=== PATIENT | female | born 1980 | race Caucasian/White ===

== ENCOUNTER → 2017-10-10 | Outpatient (REF) | payer BC ==
[2017-10-10 19:50] LABS: BASO % 0.2 % (0.0-1.0); EOS # 0.1 10^3/uL (0.0-0.50); EOS % 1.6 % (0.0-3.0); HEMATOCRIT 38.8 % (36.0-47.0); HEMOGLOBIN 12.9 g/dl (12.0-16.0); IMMATURE GRANULOCYTE % 0.2 % (0-3.0); LYMPH # 0.9 10^3/uL (1.5-4.5); LYMPH % 20.8 % (24.0-44.0); MEAN CORPUSCULAR HEMOGLOBIN 30.5 pg (27.0-33.0); MEAN CORPUSCULAR HGB CONC 33.2 g/dl (32.0-36.5); MEAN CORPUSCULAR VOLUME 91.7 fl (80.0-96.0); MONO # 0.3 10^3/uL (0.0-0.8); MONO % 6.8 % (0.0-5.0); NEUTROPHILS % 70.4 % (36.0-66.0); PLATELET COUNT, AUTOMATED 163 10^3/uL (150-450); RED BLOOD COUNT 4.23 10^6/uL (4.00-5.40); WHITE BLOOD COUNT 4.3 10^3/uL (4.0-10.0)
[2017-10-10 20:14] LABS: ERYTHROCYTE SEDIMENTATION RATE 5 mm/hr (0-20)
[2017-10-10 20:20] LABS: ALBUMIN 4.3 GM/DL (3.2-5.2); ALKALINE PHOSPHATASE 57 U/L (45-117); ALT/SGPT 20 U/L (12-78); ANION GAP 9 MEQ/L (8-16); AST/SGOT 16 U/L (7-37); BILIRUBIN,TOTAL 0.6 MG/DL (0.2-1.0); BLOOD UREA NITROGEN 17 MG/DL (7-18); CALCIUM LEVEL 8.7 MG/DL (8.5-10.1); CARBON DIOXIDE LEVEL 25 MEQ/L (21-32); CHLORIDE LEVEL 105 MEQ/L (98-107); CREATININE FOR GFR 0.68 MG/DL (0.55-1.30); GLOMERULAR FILTRATION RATE > 60.0 (>60); GLUCOSE, FASTING 110 MG/DL (70-100); POTASSIUM SERUM 3.9 MEQ/L (3.5-5.1); RHEUMATOID FACTOR QUANT < 10.0 IU/ML (0-15.0); SODIUM LEVEL 139 MEQ/L (136-145); TOTAL PROTEIN 7.6 GM/DL (6.4-8.2)
[2017-10-10 20:24] LABS: TOTAL 25(OH) VITAMIN D 28.7 NG/ML (30.0-100.0); VITAMIN B12 LEVEL 438 PG/ML
[2017-10-10 20:25] LABS: FOLATE 12.6 NG/ML
== END ==
LOC: M LABNEURO 12:47
DX: G31.84 Mild cognitive impairment of uncertain or unknown etiology (principal); E55.9 Vitamin D deficiency, unspecified; Z13.29 Encounter for screening for other suspected endocrine disorder
CPT/HCPCS: 82746

== ENCOUNTER → 2021-09-14 | Outpatient (REF) | payer OTHER ==
[2021-09-14 18:13] LABS: C REACTIVE PROTEIN QUANTITATIV < 0.30 MG/DL (0.00-0.30); COMPLEMENT C3 78 MG/DL (90-180); COMPLEMENT C4 20 MG/DL (10-40)
== END ==
LOC: M LAB REF 16:28
PROVIDERS: ATTEND Internal Medicine
DX: M32.9 Systemic lupus erythematosus, unspecified (principal); Z79.899 Other long term (current) drug therapy

== ENCOUNTER → 2022-04-05 | Outpatient (REF) | payer OTHER | LOC: M LAB REF 16:18 | PROVIDERS: ATTEND Internal Medicine | DX: M32.9 Systemic lupus erythematosus, unspecified (principal) ==

== ENCOUNTER → 2022-06-09 | Outpatient (REF) | payer OTHER | LOC: M PLALAB 16:41 | PROVIDERS: ATTEND Nurse Practitioner Family | DX: Z12.4 Encounter for screening for malignant neoplasm of cervix (principal) ==

== ENCOUNTER → 2023-06-12 | Outpatient (REF) | payer OTHER | LOC: M SFHCWAGY 15:28 | PROVIDERS: ATTEND Nurse Practitioner Family | DX: Z12.4 Encounter for screening for malignant neoplasm of cervix (principal); Z01.419 Encounter for gynecological examination (general) (routine) without abnormal findings; Z77.9 Other contact with and (suspected) exposures hazardous to health ==

== ENCOUNTER → 2023-06-20 | Outpatient (CLI) | payer OTHER | LOC: M WHC 07:13 | PROVIDERS: ATTEND Nurse Practitioner Family | DX: Z12.31 Encounter for screening mammogram for malignant neoplasm of breast (principal) ==

== ENCOUNTER 2023-09-29 16:00 | Emergency (ER) | payer OTHER ==
[~2023-09-29] VITALS: Ht 165.1 cm; Wt 81.7 kg
[2023-09-29 17:06] LABS: BASO % 0.4 % (0.0-1.0); EOS # 0.1 10^3/uL (0.0-0.5); EOS % 1.3 % (0.0-3.0); HEMATOCRIT 38.6 % (36.0-47.0); HEMOGLOBIN 13.2 g/dl (12.0-15.5); LYMPH % 17.9 % (24.0-44.0); MEAN CORPUSCULAR HEMOGLOBIN 31.6 pg (27.0-33.0); MEAN CORPUSCULAR HGB CONC 34.2 g/dl (32.0-36.5); MEAN CORPUSCULAR VOLUME 92.3 fl (80.0-96.0); MONO # 0.4 10^3/uL (0.0-0.8); MONO % 7.6 % (2.0-8.0); NEUTROPHILS # 3.9 10^3/uL (1.5-8.5); NEUTROPHILS % 72.4 % (36.0-66.0); PLATELET COUNT, AUTOMATED 151 10^3/uL (150-450); RED BLOOD COUNT 4.18 10^6/uL (4.00-5.40); WHITE BLOOD COUNT 5.4 10^3/uL (4.0-10.0)
[2023-09-29 17:12] LABS: INR 1.14; PROTHROMBIN TIME 14.3 SECONDS (12.5-14.5)
[2023-09-29 17:13] LABS: PARTIAL THROMBOPLASTIN TIME 27.8 SECONDS (24.8-34.2)
[2023-09-29 17:26] LABS: C REACTIVE PROTEIN QUANTITATIV < 0.40 MG/DL (<1.0)
[2023-09-29 17:28] LABS: BLOOD UREA NITROGEN 12 MG/DL (9-23); CALCIUM LEVEL 9.2 MG/DL (8.5-10.1); CARBON DIOXIDE LEVEL 27 MMOL/L (20-31); CHLORIDE LEVEL 103 MMOL/L (98-107); CREATININE FOR GFR 0.63 MG/DL (0.55-1.30); GLOMERULAR FILTRATION RATE > 60.0 (>58); GLUCOSE, FASTING 87 MG/DL (60-100); POTASSIUM SERUM 4.3 MMOL/L (3.5-5.1); SODIUM LEVEL 138 MMOL/L (136-145)
[2023-09-29 17:35] LABS: HCG, SERUM QUALITATIVE NEGATIVE (NEGATIVE)
[2023-09-29] MEDS ORDERED: APIXABAN 5 MG TAB (ELIQUIS) PO ONE (17:35)
[2023-09-29 17:42] LABS: ERYTHROCYTE SEDIMENTATION RATE 9 mm/hr (0-20)
[2023-09-29 17:45] VITALS: BP 117/56; TEMP 97.5; O2SAT 100
[2023-09-29] MEDS ORDERED: ELIQ5TAB PO (17:56)
== END 2023-09-29 18:08 | disposition home or self-care (01) ==
LOC: M ED 16:00
DX: I82.A11 Acute embolism and thrombosis of right axillary vein (principal); I82.B11 Acute embolism and thrombosis of right subclavian vein

== ENCOUNTER → 2024-03-13 | Outpatient (CLI) | payer OTHER ==
[~2024-03-13] MED LIST: ELIQ5TAB PO
[2024-03-13 15:47] LABS: BASO % 0.6 % (0.0-1.0); EOS # 0.1 10^3/uL (0.0-0.5); EOS % 1.2 % (0.0-3.0); HEMATOCRIT 38.5 % (36.0-47.0); HEMOGLOBIN 12.9 g/dl (12.0-15.5); LYMPH # 1.1 10^3/uL (1.5-5.0); LYMPH % 21.1 % (24.0-44.0); MEAN CORPUSCULAR HEMOGLOBIN 31.7 pg (27.0-33.0); MEAN CORPUSCULAR HGB CONC 33.5 g/dl (32.0-36.5); MEAN CORPUSCULAR VOLUME 94.6 fl (80.0-96.0); MONO # 0.4 10^3/uL (0.0-0.8); MONO % 7.3 % (2.0-8.0); NEUTROPHILS # 3.5 10^3/uL (1.5-8.5); NEUTROPHILS % 69.6 % (36.0-66.0); PLATELET COUNT, AUTOMATED 194 10^3/uL (150-450); RED BLOOD COUNT 4.07 10^6/uL (4.00-5.40); WHITE BLOOD COUNT 5.1 10^3/uL (4.0-10.0)
[2024-03-13 15:52] LABS: ERYTHROCYTE SEDIMENTATION RATE 2 mm/hr (0-20)
[2024-03-13 16:17] LABS: C REACTIVE PROTEIN QUANTITATIV < 0.40 MG/DL (<1.0)
[2024-03-13 16:18] LABS: ALBUMIN 4.1 G/DL (3.2-5.2); ALT/SGPT 15 U/L (7.0-40); AST/SGOT 8 U/L (<34); BLOOD UREA NITROGEN 13 MG/DL (9-23); CREATININE FOR GFR 0.69 MG/DL (0.55-1.30); GLOMERULAR FILTRATION RATE > 60.0 (>58)
[2024-03-18 09:13] LABS: BETA-2 GLYCOPROTEIN I ABY IGA 3.6 U/mL (<20.0); BETA-2 GLYCOPROTEIN I ABY IGG < 2.0 U/mL (<20.0); BETA-2 GLYCOPROTEIN I ABY IGM < 2.0 U/mL (<20.0)
[2024-03-20 01:29] LABS: CARDIOLIPIN IGA ANTIBODY 3.6 APL-U/mL (<20.0); CARDIOLIPIN IGG ANTIBODY < 2.0 GPL-U/mL (<20.0); CARDIOLIPIN IGM ANTIBODY < 2.0 MPL-U/mL (<20.0)
== END ==
LOC: M PLALAB 13:52
PROVIDERS: ATTEND Physician Assistant
DX: Z79.899 Other long term (current) drug therapy (principal); M32.9 Systemic lupus erythematosus, unspecified

== ENCOUNTER → 2024-05-14 | Outpatient (REF) | payer OTHER ==
[2024-05-14 19:41] LABS: PERCENT SATURATION 25.2 % (13.2-45.0)
[2024-05-14 19:45] LABS: FERRITIN 36.1 NG/ML (7.3-270.7)
== END ==
LOC: M LAB REF 16:52
PROVIDERS: ATTEND Internal Medicine
DX: R23.1 Pallor (principal); R42 Dizziness and giddiness; M32.9 Systemic lupus erythematosus, unspecified

== ENCOUNTER 2024-06-19 07:16 | Day surgery (SDC) | payer OTHER ==
[~2024-06-19] VITALS: Ht 167.6 cm; Wt 73.2 kg
[~2024-06-19 07:16] MED LIST changes: +HYDR200T46; +NORE0.353; +VALA-3
[2024-06-19] MEDS: NS 250 ML IV ONE (07:47)
[2024-06-19 09:55] VITALS: TEMP 97.6
[2024-06-19] MEDS ORDERED: propofoL 200 MG/20 ML VIAL As Ordered ONE (09:55)
[2024-06-19 10:15] VITALS: BP 102/53; O2SAT 100
== END 2024-06-19 10:19 | disposition home or self-care (01) ==
LOC: M OPP 07:16
PROVIDERS: ATTEND Surgery
DX: K63.5 Polyp of colon (principal); K64.0 First degree hemorrhoids; Z87.891 Personal history of nicotine dependence; Z79.899 Other long term (current) drug therapy; Z86.718 Personal history of other venous thrombosis and embolism

== ENCOUNTER → 2024-06-28 | Outpatient (REF) | payer OTHER | LOC: M SFHCWAGY 13:11 | PROVIDERS: ATTEND Nurse Practitioner Family | DX: Z12.4 Encounter for screening for malignant neoplasm of cervix (principal) ==

== ENCOUNTER → 2024-06-28 | Outpatient (CLI) | payer OTHER | LOC: M WHC 08:24 | PROVIDERS: ATTEND Nurse Practitioner Family | DX: Z12.31 Encounter for screening mammogram for malignant neoplasm of breast (principal) ==

== ENCOUNTER → 2024-09-11 | Outpatient (CLI) | payer OTHER ==
[2024-09-11 14:14] LABS: Trichomonas vaginalis (AMP) NOT DETECTED (NEGATIVE)
[2024-09-11 14:33] LABS: HEPATITIS B SURFACE ANTIGEN NEGATIVE (NEGATIVE)
[2024-09-11 14:37] LABS: GC DNA AMPLIFICATION NEGATIVE (NEGATIVE)
[2024-09-11 14:46] LABS: HIV 1&2 SCREEN NEGATIVE (NEGATIVE)
[2024-09-11 14:54] LABS: HEPATITIS C VIRUS ABY INDEX < 0.02 INDEX (<0.8)
[2024-09-11 14:55] LABS: HEPATITIS B CORE ANTIBODY IGM NEGATIVE (NEGATIVE)
== END ==
LOC: M PLALAB 11:27
PROVIDERS: ATTEND Nurse Practitioner Family
DX: Z11.3 Encounter for screening for infections with a predominantly sexual mode of transmission (principal)

== ENCOUNTER → 2025-06-24 | Outpatient (REF) | payer OTHER | LOC: M LAB REF 17:30 | PROVIDERS: ATTEND Nurse Practitioner Adult Health | DX: N39.0 Urinary tract infection, site not specified (principal) ==

== ENCOUNTER → 2025-07-15 | Outpatient (REF) | payer OTHER ==
[2025-07-17 17:27] LABS: HPV APTIMA Not Detected (Not Detected)
== END ==
LOC: M SFHCWAGY 13:14
PROVIDERS: ATTEND Nurse Practitioner Family
DX: Z12.4 Encounter for screening for malignant neoplasm of cervix (principal); Z79.899 Other long term (current) drug therapy; R87.610 Atypical squamous cells of undetermined significance on cytologic smear of cervix (ASC-US)
CPT/HCPCS: 87624; G0123

== ENCOUNTER → 2025-07-15 | Outpatient (CLI) | payer OTHER | LOC: M WHC 08:37 | PROVIDERS: ATTEND Nurse Practitioner Family | DX: Z12.31 Encounter for screening mammogram for malignant neoplasm of breast (principal); R92.333 Mammographic heterogeneous density, bilateral breasts ==